=== PATIENT | female | born 2005 | race Caucasian/White ===

== ENCOUNTER 2023-01-21 19:48 | Emergency (ER) | payer OTHER, SELFPAY ==
--- NOTE | ~2023-01-21 | XR_ITS ---
EXAMINATION: XR chest 2V DATE: 01/21/2023 21:51 INDICATION: Chest pain. TECHNIQUE: Frontal and lateral views of the chest were obtained. COMPARISON: None. FINDINGS: There is no pneumonia, pleural effusion, or pneumothorax. The heart size is normal. IMPRESSION: 1. No acute cardiopulmonary disease. Reviewed, dictated and finalized at location E.
--- NOTE | 2023-01-21 19:50 | ECG_ITS ---
Measurements Intervals [place] Rate: 74 P: 70 AK: 147 QRS: 82 QRSD: 85 T: 42 QT: 353 QTc: 392 Interpretive Statements SINUS RHYTHM BASELINE ARTIFACT- II, III NORMAL ECG NO PREVIOUS ECG AVAILABLE FOR COMPARISON Electronically Signed On 01-22-2023 6:56:30 CDT by Adonis Fernandez D.O.
[2023-01-21 19:52] VITALS: BP 125/80; PULSE 70; RESP 20; TEMP 36.8; O2SAT 100
[2023-01-21 21:33] VITALS: PULSE 62
[2023-01-21 21:42] VITALS: O2SAT 100
[2023-01-21 21:44] VITALS: BP 119/80; PULSE 67; RESP 19; TEMP 36.7; O2SAT 100
[2023-01-21 21:45] LABS: Basophils Absolute Auto 0.1 K/mm3 (0.0-0.1); Basophils Percent Auto 0.8 % (0.2-1.2); Eosinophils Absolute Auto 0.2 K/mm3 (0-0.3); Eosinophils Percent Auto 2.2 % (0-4.4); Hematocrit 41.5 % (37.0-47.0); Hemoglobin 13.8 g/dL (12.0-15.0); Immature Granulocyte Absolute 0.01 K/mm3 (0.00-0.031); Immature Granulocyte Percent A 0.1 % (0-0.5); Lymphocytes Absolute Auto 2.73 K/mm3 (0.9-3.2); Lymphocytes Percent Auto 37.7 % (18.3-44.2); Mean Corpuscular HGB Conc 33.3 g/dl (32-36); Mean Corpuscular Hemoglobin 29.7 pg (26-34); Mean Corpuscular Volume 89.4 fl (80-100); Mean Platelet Volume 10.6 fl (7.4-10.4); Monocytes Absolute Auto 0.4 K/mm3 (0.1-0.6); Monocytes Percent Auto 5.2 % (2.6-8.5); Neutrophils Absolute Auto 3.9 K/mm3 (1.3-6.7); Platelet Count Result 264 k/mm3 (150-375); Red Blood Count 4.64 M/mm3 (4.2-5.4); Red Cell Distribution Width 12.5 % (11.5-14.5); White Blood Count 7.2 K/mm3 (4.5-10.0)
[2023-01-21 21:56] LABS: INR 1.1; Partial Thromboplastin Time 34.1 SECONDS (22.3-36.8); Prothrombin Time 15.3 Seconds (11.1-14.7)
[2023-01-21 22:07] LABS: Alanine Aminotransferase 20 U/L (6-35); Albumin Level 5.2 g/dL (3.7-5.6); Alkaline Phosphatase 45 U/L (45-116); Anion Gap 9 mmol/L (8-16); Aspartate Amino Transferase 30 U/L (14-36); Bilirubin,Total 1.5 mg/dL (0.2-1.3); Blood Urea Nitrogen 17 mg/dL (8-21); Calcium 9.7 mg/dL (8.9-10.7); Carbon Dioxide 28 mmol/L (22-30); Chloride 102 mmol/L (98-107); Estimated CRCL calculation 73 ml/min; Estimated Glomerular Filt Rate > 60; Glucose 87 mg/dL (65-110); Lipase 63 U/L (23-300); Potassium 3.6 mmol/L (3.4-5.0); Sodium 139 mmol/L (134-143); Troponin I < 0.012 ng/mL (0.000-0.034)
--- NOTE | 2023-01-21 23:01 | ED.GENADULT ---
HPI - General Adult General Chief complaint: Chest Pain Stated complaint: muscle cramps Time Seen by Provider: 01/21/23 21:48 History of Present Illness HPI narrative: This is a 17-year-old female presenting ED with a chief complaint of chest pain. Patient says that she has been having intermittent chest pain for the last year and a half. She describes it as a throbbing sensation on the left side of her chest. Today she noticed that she had a throbbing sensation are left biceps and left hand as well. Lasted for 10 minutes and then resolved. This happened once a month for last year and half. She notes that it typically occurs when she is under increased periods of stress. She says she is stressed out right now about school. Patient denies fever chills URI symptoms, shortness of breath abdominal pain or lower extremity edema. Related Data Allergies Allergy/AdvReac Type Severity Reaction Status Date / Time No Known Allergies Allergy Verified 01/21/23 19:58 Exam Narrative: APPEARANCE: No apparent distress. Head: atraumatic. EYES: EOMI, NOSE: Atraumatic NECK: Trachea midline RESPIRATORY: No increased rate of breathing , CTAB CARDIOVASCULAR: RRR, no peripheral edema ABDOMINAL: Non-distended MUSCULOSKELETAl: No obvious deformities NEURO: Alert. Moving 4/4 extremities SKIN:: Warm, dry. Normal color PSYCHIATRIC: Normal affect Course Vital Signs Vital signs: Vital Signs Temperature 98.3 F 01/21/23 19:52 Pulse Rate 70 01/21/23 19:52 Respiratory Rate 20 01/21/23 19:52 Blood Pressure 125/80 01/21/23 19:52 Pulse Oximetry 100 01/21/23 19:52 Oxygen Delivery Room Air 01/21/23 19:52 Temperature 98.1 F 01/21/23 21:44 Pulse Rate 67 01/21/23 21:44 Respiratory Rate 19 01/21/23 21:44 Blood Pressure 119/80 01/21/23 21:44 Pulse Oximetry 100 01/21/23 21:44 Oxygen Delivery Room Air 01/21/23 21:42 Medical Decision Making [facility] Narrative Medical decision making narrative: -Course: 17-year-old female presenting with a throbbing sensation on left side of her chest. Chest x-ray and EKG were unremarkable. Patient has been having the symptoms during periods of increased stress for over a year. Unlikely to be anything life-threatening at this time. Patient will be discharged with primary care follow-up. 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 She is originally from [facility]. -Independent interpretation of studies: Laboratory studies within normal limits. Chest x-ray unremarkable. Independent EKG interpretation: Rhythm [sinus], Rate 74, [place] -[normal], VA -[normal], QRS [narrow], QTC [normal], T waves -[negative for concerning inversions], ST Segments - [Negative for concerning elevations] Final interpretations: [Normal Sinus Rhythm] -Dx tests considered but not ordered: PE studies- perc negative -Shared decision making / Disposition: discharged Vital Signs Vital Signs: Vital Signs Temperature 98.3 F 01/21/23 19:52 Pulse Rate 70 01/21/23 19:52 Respiratory Rate 20 01/21/23 19:52 Blood Pressure 125/80 01/21/23 19:52 Pulse Oximetry 100 01/21/23 19:52 Oxygen Delivery Room Air 01/21/23 19:52 Temperature 98.1 F 01/21/23 21:44 Pulse Rate 67 01/21/23 21:44 Respiratory Rate 19 01/21/23 21:44 Blood Pressure 119/80 01/21/23 21:44 Pulse Oximetry 100 01/21/23 21:44 Oxygen Delivery Room Air 01/21/23 21:42 Lab Data 01/21/23 21:38 01/21/23 21:38 Labs: Lab Results 01/21/23 Range/Units 21:38 WBC 7.2 (4.5-10.0) K/mm3 RBC 4.64 (4.2-5.4) M/mm3 Hgb 13.8 (12.0-15.0) g/dL Hct 41.5 (37.0-47.0) % MCV 89.4 (80-100) fl MCH 29.7 (26-34) pg MCHC 33.3 (32-36) g/dl RDW 12.5 (11.5-14.5) % Plt Count 264 (150-375) k/mm3 MPV 10.6 H (7.4-10
[2023-01-21 23:11] VITALS: PULSE 67; RESP 16; TEMP 36.1; O2SAT 100
== END 2023-01-21 23:12 | disposition home or self-care (01) ==
PROVIDERS: Emergency Provider Emergency Medicine
DX: R07.89 Other chest pain (principal)
CPT/HCPCS: 36415; 71046; 80053; 83690; 84484; 85025; 85610; 85730; 93005; 99284